=== PATIENT | female | born 1980 | race African-American/Black ===

== ENCOUNTER 2022-05-05 13:45 | Inpatient (IN) | payer MEDICAID, OTHER ==
[~2022-05-05] VITALS: Ht 162.6 cm; Wt 57.6 kg
[2022-05-05 15:45] LABS: EOSINOPHILS % (AUTO) 1.5 % (1.0-6.0); HEMATOCRIT 42.7 % (36-46); HEMOGLOBIN 14.2 g/dL (12.0-16.0); LYMPHOCYTES # (AUTO) 1.4 K/uL (1.0-4.8); LYMPHOCYTES % (AUTO) 19.9 % (22.0-44.0); MEAN CORPUSCULAR HEMOGLOBIN 31.3 pg (26.0-34.0); MEAN CORPUSCULAR HGB CONC 33.3 G/dL (31.0-37.0); MEAN CORPUSCULAR VOLUME 94 fL (80-100); MONOCYTES # (AUTO) 0.5 K/uL (0.1-1.0); MONOCYTES % (AUTO) 6.4 % (2.0-9.0); NEUTROPHILS # (AUTO) 5.2 K/uL (1.8-7.7); NEUTROPHILS % (AUTO) 71.2 % (40.0-70.0); PLATELET COUNT (AUTO) 268 K/uL (150-450); RED BLOOD CELL COUNT(AUTO) 4.54 MIL/uL (4.00-5.20); RED CELL DISTRIBUTION WIDTH 13.5 % (11.5-14.5)
[2022-05-05 15:56] LABS: ANION GAP 9 mmol/L (8-16); CALCIUM, TOTAL 9.7 mg/dL (8.8-10.5); CARBON DIOXIDE 30 mmol/L (22-29); CHLORIDE 105 mmol/L (98-107); CREATININE 0.92 mg/dL (0.60-1.30); GLOMERULAR FILTR. RATE CALC > 60 mL/min (>60); GLUCOSE,RANDOM 88 mg/dL (70-110); POTASSIUM 3.4 mmol/L (3.5-5.1); SODIUM SERUM 144 mmol/L (136-145); UREA NITROGEN, BLOOD 24 mg/dL (7-18)
[2022-05-05 16:08] LABS: ALANINE AMINOTRANSFERASE 18 U/L (12-78); ALKALINE PHOSPHATASE 55 U/L (46-116); ASPARTATE AMINOTRANSFERASE 19 U/L (15-37); BILIRUBIN,TOTAL 2.5 mg/dL (0.1-1.0); HCG,QUANTITATIVE < 1 mIU/mL (0-6); THYROID STIMULATING HORMONE 0.88 uIU/mL (0.36-3.74); TOTAL PROTEIN, SERUM 8.5 g/dL (6.4-8.2)
[2022-05-05] MEDS ORDERED: HALOPERIDOL LACTATE 5 MG/ML VIAL IM ONE (16:15)
[2022-05-05] MEDS ORDERED: OLANZapine 5 MG RAPDIS TABLET PO PRN (16:45)
[2022-05-05] MEDS ORDERED: LORazepam 1 MG TABLET PO PRN (16:45)
[2022-05-05] MEDS ORDERED: ZOLPIDEM TARTRATE 10 MG TABLET PO PRN (16:45)
[2022-05-05 20:18] LABS: COVID AG,FIA SOURCE NASAL SWAB
[2022-05-06 04:29] VITALS: BP 118/70
[2022-05-06] MEDS ORDERED: INFLUENZA VIRUS VACCINE QVS 2022-23 (6MO+)/PF 60 MCG/0.5 ML SYRINGE IM. ONE (06:00)
[2022-05-06] MEDS ORDERED: ACETAMINOPHEN 325 MG TABLET PO PRN (06:45)
[2022-05-06] MEDS ORDERED: ALBUTEROL SULFATE HFA 90 MCG/PUFF 8 GM INHALER IH PRN (06:45)
[2022-05-06] MEDS ORDERED: MAG HYDROX/AL HYDROX/SIMETH ES 30 ML SUSPENSION UDCUP PO PRN (06:45)
[2022-05-06] MEDS ORDERED: POTASSIUM CHLORIDE 20 MEQ ER TABLET PO ONE (06:45)
[2022-05-06] MEDS ORDERED: IBUPROFEN 600 MG TABLET PO PRN (06:45)
[2022-05-06] MEDS ORDERED: MAGNESIUM HYDROXIDE SUSPENSION 30 ML UDCUP PO PRN (06:45)
[2022-05-06] MEDS ORDERED: LOPERAMIDE HCL 2 MG CAPSULE PO PRN (06:45)
[2022-05-06] MEDS ORDERED: PETROLATUM,WHITE 28 GM JELLY TP PRN (06:45)
[2022-05-06] MEDS ORDERED: BENZOCAINE/MENTHOL LOZENGE PO PRN (06:45)
[2022-05-06] MEDS ORDERED: DOCUSATE SODIUM 100 MG CAPSULE PO PRN (06:45)
[2022-05-06] MEDS ORDERED: ONDANSETRON HCL 4 MG TABLET PO PRN (06:45)
[2022-05-06] MEDS ORDERED: OMEPRAZOLE 20 MG CAPSULE PO PRN (06:45)
[2022-05-06] MEDS ORDERED: CloNIDine HCL 0.1 MG TABLET PO PRN (06:45)
[2022-05-06] MEDS ORDERED: BACITRACIN 28 GM OINTMENT TP PRN (06:45)
[2022-05-06 07:23] LABS: HEMOGLOBIN A1C 4.8 % (3.8-5.6)
[2022-05-06 07:27] LABS: CHOL/HDL RATIO 6.8 (3.9-5.7)
[2022-05-06 09:02] VITALS: BP 107/61
[2022-05-06 20:36] VITALS: BP 104/61
[2022-05-07 08:06] VITALS: BP 134/85
[2022-05-07] MEDS ORDERED: POTASSIUM CHLORIDE 20 MEQ ER TABLET PO ONE (17:45)
[2022-05-07] MEDS: SIMVASTATIN 10 MG TABLET PO SCH (20:36)
[2022-05-07 20:45] VITALS: BP 120/72
[2022-05-08] MEDS: POTASSIUM CHLORIDE 20 MEQ ER TABLET PO SCH ×2 (08:21→17:35)
[2022-05-08 09:01] VITALS: BP 111/74
[2022-05-08] MEDS: SIMVASTATIN 10 MG TABLET PO SCH (20:14)
[2022-05-08 20:42] VITALS: BP 106/67
[2022-05-09 07:21] LABS: ANION GAP 4 mmol/L (8-16); CALCIUM, TOTAL 8.8 mg/dL (8.8-10.5); CARBON DIOXIDE 30 mmol/L (22-29); CHLORIDE 104 mmol/L (98-107); CREATININE 0.77 mg/dL (0.60-1.30); GLUCOSE,RANDOM 93 mg/dL (70-110); POTASSIUM 3.9 mmol/L (3.5-5.1); SODIUM SERUM 138 mmol/L (136-145); UREA NITROGEN, BLOOD 7 mg/dL (7-18)
[2022-05-09 07:22] LABS: GLOMERULAR FILTR. RATE CALC > 60 mL/min (>60)
[2022-05-09 08:29] VITALS: BP 106/66
[2022-05-09] MEDS: POTASSIUM CHLORIDE 20 MEQ ER TABLET PO SCH ×2 (08:41→17:09)
[2022-05-09 20:18] VITALS: BP 102/64
[2022-05-09] MEDS: SIMVASTATIN 10 MG TABLET PO SCH (20:27)
[2022-05-10] MEDS ORDERED: CITALOPRAM HYDROBROMIDE 20 MG TABLET PO SCH (09:00)
[2022-05-10] MEDS: POTASSIUM CHLORIDE 20 MEQ ER TABLET PO SCH ×2 (09:19→17:09)
[2022-05-10 09:27] VITALS: BP 113/76
[2022-05-10 20:40] VITALS: BP 103/65
[2022-05-10] MEDS: SIMVASTATIN 10 MG TABLET PO SCH (20:40)
[2022-05-10] MEDS ORDERED: CITA-144 PO (21:29)
[2022-05-10] MEDS ORDERED: SIMV-259 PO (23:22)
[2022-05-11 07:20] LABS: GLUCOMETER DEV NAME(LOC) POC.BV
[2022-05-11] MEDS ORDERED: SIMV-259 PO (19:15)
== END 2022-05-11 07:20 | disposition home or self-care (01) | DRG 750 ==
LOC: EMS 13:50 → B2S 05-06 00:27
PROVIDERS: ADMIT Psychiatry & Neurology Psychiatry; ATTEND Psychiatry & Neurology Psychiatry
DX: F25.9 Schizoaffective disorder, unspecified (principal); E78.5 Hyperlipidemia, unspecified; E87.6 Hypokalemia; F32.A Depression, unspecified; F41.9 Anxiety disorder, unspecified; K59.00 Constipation, unspecified; T73.0XXA Starvation, initial encounter; Z20.822 Contact with and (suspected) exposure to COVID-19; G47.00 Insomnia, unspecified; Z72.0 Tobacco use; Z71.6 Tobacco abuse counseling
CPT/HCPCS: 80048; 80053; 80061; 83036; 84132; 84443; 84702; 85025; 99285; G0480; J1630

== ENCOUNTER 2022-09-11 10:12 | Inpatient (IN) | payer MEDICAID, OTHER ==
[~2022-09-11] VITALS: Ht 162.6 cm; Wt 62.4 kg
[~2022-09-11 10:12] MED LIST: CITA-144 PO; SIMV-259 PO
[2022-09-11 11:03] LABS: BASOPHILS % (AUTO) 0.5 % (0.0-2.0); EOSINOPHILS % (AUTO) 0.5 % (1.0-6.0); HEMATOCRIT 38.5 % (36-46); HEMOGLOBIN 12.3 g/dL (12.0-16.0); LYMPHOCYTES # (AUTO) 1.5 K/uL (1.0-4.8); LYMPHOCYTES % (AUTO) 25.6 % (22.0-44.0); MEAN CORPUSCULAR HEMOGLOBIN 29.5 pg (26.0-34.0); MEAN CORPUSCULAR VOLUME 92 fL (80-100); MONOCYTES # (AUTO) 0.5 K/uL (0.1-1.0); MONOCYTES % (AUTO) 8.2 % (2.0-9.0); NEUTROPHILS # (AUTO) 3.9 K/uL (1.8-7.7); NEUTROPHILS % (AUTO) 65.2 % (40.0-70.0); PLATELET COUNT (AUTO) 250 K/uL (150-450); RED BLOOD CELL COUNT(AUTO) 4.17 MIL/uL (4.00-5.20); RED CELL DISTRIBUTION WIDTH 14.1 % (11.5-14.5)
[2022-09-11 11:05] LABS: COVID AG,FIA SOURCE NASOPHARYNGEAL
[2022-09-11 11:12] LABS: ANION GAP 17 mmol/L (8-16); CALCIUM, TOTAL 8.6 mg/dL (8.8-10.5); CARBON DIOXIDE 17 mmol/L (22-29); CHLORIDE 108 mmol/L (98-107); CREATININE 0.76 mg/dL (0.60-1.30); GLOMERULAR FILTR. RATE CALC > 60 mL/min (>60); GLUCOSE,RANDOM 60 mg/dL (70-110); POTASSIUM 3.5 mmol/L (3.5-5.1); SODIUM SERUM 142 mmol/L (136-145); UREA NITROGEN, BLOOD 9 mg/dL (7-18)
[2022-09-11 11:20] LABS: APPEARANCE,URINE CLEAR (CLEAR); BILIRUBIN,URINE NEGATIVE (NEGATIVE); GLUCOSE, URINE (UA) NEGATIVE (NEGATIVE); KETONES,URINE =>150 mg/dL (NEGATIVE); LEUKOCYTE ESTERASE ,URINE NEGATIVE (NEGATIVE); NITRATE,URINE NEGATIVE (NEGATIVE); OCCULT BLOOD,URINE NEGATIVE (NEGATIVE); PH,URINE 5.5 (5.0-8.0); PROTEIN,URINE 30-70 mg/dL (NEGATIVE); SPECIFIC GRAVITIY, URINE 1.031 (1.003-1.030); UROBILINOGEN,URINE <=1.0 mg/dL (<=1.0)
[2022-09-11 11:26] LABS: ALANINE AMINOTRANSFERASE 12 U/L (12-78); ALBUMIN 3.8 g/dL (3.4-5.0); ALKALINE PHOSPHATASE 53 U/L (46-116); ASPARTATE AMINOTRANSFERASE 18 U/L (15-37); HCG,QUANTITATIVE < 1 mIU/mL (0-6); THYROID STIMULATING HORMONE 0.54 uIU/mL (0.36-3.74); TOTAL PROTEIN, SERUM 7.7 g/dL (6.4-8.2)
[2022-09-11 11:53] LABS: AMPHET/METH SCREEN,URINE NEGATIVE (NEGATIVE); BARBITURATE SCREEN, URINE NEGATIVE (NEGATIVE); BENZODIAZEPINES SCREEN,URINE NEGATIVE (NEGATIVE); CANNABINOID SCREEN,URINE NEGATIVE (NEGATIVE); COCAINE SCREEN,URINE NEGATIVE (NEGATIVE); METHADONE SCREEN, URINE NEGATIVE (NEGATIVE); OPIATE SCREEN,URINE NEGATIVE (NEGATIVE); PHENCYCLIDINE SCREEN,URINE NEGATIVE (NEGATIVE)
[2022-09-11] MEDS ORDERED: HALOPERIDOL 5 MG TABLET PO PRN (13:00)
[2022-09-11] MEDS ORDERED: LORazepam 2 MG TABLET PO PRN (13:00)
[2022-09-11] MEDS ORDERED: ZOLPIDEM TARTRATE 10 MG TABLET PO PRN (13:00)
[2022-09-11 13:31] LABS: GLUCOSE,POINT OF CARE 83 MG/DL (70-110)
[2022-09-11 20:25] VITALS: BP 117/82
[2022-09-11] MEDS: SIMVASTATIN 10 MG TABLET PO SCH (20:33)
[2022-09-12 09:06] VITALS: BP 109/66
[2022-09-12] MEDS: RisperiDONE 1 MG TABLET PO SCH ×2 (11:05→16:25)
[2022-09-12] MEDS: ESCITALOPRAM OXALATE 10 MG TABLET PO SCH (11:05)
[2022-09-12] MEDS ORDERED: ALBUTEROL SULFATE HFA 90 MCG/PUFF 8 GM INHALER IH PRN (16:00)
[2022-09-12] MEDS ORDERED: IBUPROFEN 400 MG TABLET PO PRN (16:00)
[2022-09-12] MEDS ORDERED: LOPERAMIDE HCL 2 MG CAPSULE PO PRN (16:00)
[2022-09-12] MEDS ORDERED: ACETAMINOPHEN 325 MG TABLET PO PRN (16:00)
[2022-09-12] MEDS ORDERED: CloNIDine HCL 0.1 MG TABLET PO PRN (16:00)
[2022-09-12] MEDS ORDERED: MAG HYDROX/AL HYDROX/SIMETH ES 30 ML SUSPENSION UDCUP PO PRN (16:00)
[2022-09-12] MEDS ORDERED: PETROLATUM,WHITE 28 GM JELLY TP PRN (16:00)
[2022-09-12] MEDS ORDERED: GuaiFENesin/D-METHORPHAN [SUGAR-FREE] 200-20MG/10 ML SYRUP UDCUP PO PRN (16:00)
[2022-09-12] MEDS ORDERED: ONDANSETRON HCL 4 MG TABLET PO PRN (16:00)
[2022-09-12] MEDS ORDERED: NICOTINE 14 MG/24 HOUR PATCH TD PRN (16:00)
[2022-09-12] MEDS ORDERED: MAGNESIUM HYDROXIDE SUSPENSION 30 ML UDCUP PO PRN (16:00)
[2022-09-12] MEDS ORDERED: DOCUSATE SODIUM 100 MG CAPSULE PO PRN (16:00)
[2022-09-12 20:26] VITALS: BP 104/69
[2022-09-12] MEDS: SIMVASTATIN 10 MG TABLET PO SCH (20:37)
[2022-09-13 08:25] VITALS: BP 103/61
[2022-09-13] MEDS: ESCITALOPRAM OXALATE 10 MG TABLET PO SCH (08:45)
[2022-09-13] MEDS: RisperiDONE 1 MG TABLET PO SCH ×2 (08:45→16:36)
[2022-09-13 20:00] VITALS: BP 109/69
[2022-09-13] MEDS: SIMVASTATIN 10 MG TABLET PO SCH (20:08)
[2022-09-14 08:33] VITALS: BP 115/77
[2022-09-14] MEDS: ESCITALOPRAM OXALATE 10 MG TABLET PO SCH (08:46)
[2022-09-14] MEDS: RisperiDONE 1 MG TABLET PO SCH ×2 (08:46→16:21)
[2022-09-14 20:02] VITALS: BP 106/72
[2022-09-14] MEDS: SIMVASTATIN 10 MG TABLET PO SCH (20:04)
[2022-09-15 08:07] VITALS: BP 120/74
[2022-09-15] MEDS: MULTIVITAMINS WITH MINERALS, THERAPEUTIC TABLET PO SCH (08:31)
[2022-09-15] MEDS: RisperiDONE 1 MG TABLET PO SCH ×2 (08:31→16:39)
[2022-09-15] MEDS: ESCITALOPRAM OXALATE 10 MG TABLET PO SCH (08:31)
[2022-09-15 20:31] VITALS: BP 106/78
[2022-09-15] MEDS: SIMVASTATIN 10 MG TABLET PO SCH (20:31)
[2022-09-16] MEDS: ESCITALOPRAM OXALATE 10 MG TABLET PO SCH (09:10)
[2022-09-16] MEDS: MULTIVITAMINS WITH MINERALS, THERAPEUTIC TABLET PO SCH (09:10)
[2022-09-16] MEDS: RisperiDONE 1 MG TABLET PO SCH ×2 (09:10→16:44)
[2022-09-16 09:49] VITALS: BP 120/80
[2022-09-16] MEDS: SIMVASTATIN 10 MG TABLET PO SCH (20:38)
[2022-09-16 22:42] VITALS: BP 111/62
[2022-09-17] MEDS: MULTIVITAMINS WITH MINERALS, THERAPEUTIC TABLET PO SCH (08:15)
[2022-09-17] MEDS: RisperiDONE 1 MG TABLET PO SCH ×2 (08:15→16:12)
[2022-09-17] MEDS: ESCITALOPRAM OXALATE 10 MG TABLET PO SCH (08:15)
[2022-09-17 08:19] VITALS: BP 110/68
[2022-09-17 20:34] VITALS: BP 115/70
[2022-09-17] MEDS: SIMVASTATIN 10 MG TABLET PO SCH (20:34)
[2022-09-18 00:01] LABS: GLUCOMETER DEV NAME(LOC) POC.BV
[2022-09-18] MEDS: MULTIVITAMINS WITH MINERALS, THERAPEUTIC TABLET PO SCH (08:55)
[2022-09-18] MEDS: ESCITALOPRAM OXALATE 10 MG TABLET PO SCH (08:55)
[2022-09-18] MEDS: RisperiDONE 1 MG TABLET PO SCH ×2 (08:55→16:43)
[2022-09-18 08:58] VITALS: BP 112/74
[2022-09-18 20:24] VITALS: BP 117/75
[2022-09-18] MEDS: SIMVASTATIN 10 MG TABLET PO SCH (20:31)
[2022-09-19 09:12] VITALS: BP 112/70
[2022-09-19] MEDS: RisperiDONE 1 MG TABLET PO SCH ×2 (09:35→16:54)
[2022-09-19] MEDS: MULTIVITAMINS WITH MINERALS, THERAPEUTIC TABLET PO SCH (09:36)
[2022-09-19] MEDS: ESCITALOPRAM OXALATE 10 MG TABLET PO SCH (09:36)
[2022-09-19] MEDS: SIMVASTATIN 10 MG TABLET PO SCH (20:10)
[2022-09-19 20:16] VITALS: BP 105/70
[2022-09-20 07:33] LABS: CHOL/HDL RATIO 2.5 (3.9-5.7)
[2022-09-20] MEDS: RisperiDONE 1 MG TABLET PO SCH ×2 (08:15→17:22)
[2022-09-20] MEDS: ESCITALOPRAM OXALATE 10 MG TABLET PO SCH (08:15)
[2022-09-20] MEDS: MULTIVITAMINS WITH MINERALS, THERAPEUTIC TABLET PO SCH (08:15)
[2022-09-20 08:24] VITALS: BP 117/74
[2022-09-20 20:31] VITALS: BP 107/73
[2022-09-20] MEDS: SIMVASTATIN 10 MG TABLET PO SCH (20:35)
[2022-09-21 08:19] VITALS: BP 130/75
[2022-09-21] MEDS: MULTIVITAMINS WITH MINERALS, THERAPEUTIC TABLET PO SCH (08:40)
[2022-09-21] MEDS: ESCITALOPRAM OXALATE 10 MG TABLET PO SCH (08:40)
[2022-09-21] MEDS: RisperiDONE 1 MG TABLET PO SCH ×2 (08:40→16:10)
[2022-09-21] MEDS ORDERED: SIMV10TA97 PO (09:51)
[2022-09-21] MEDS ORDERED: ESCI10 PO (09:51)
[2022-09-21] MEDS ORDERED: RISP1TAB98 PO (09:51)
== END 2022-09-21 17:37 | disposition home or self-care (01) | DRG 750 ==
LOC: EMS 10:26 → B2S 13:58
PROVIDERS: ADMIT Psychiatry & Neurology Child & Adolescent Psychiatry; ATTEND Psychiatry & Neurology Child & Adolescent Psychiatry
DX: F25.1 Schizoaffective disorder, depressive type (principal); E87.20 Acidosis, unspecified; Z20.822 Contact with and (suspected) exposure to COVID-19; F41.9 Anxiety disorder, unspecified; E78.5 Hyperlipidemia, unspecified; E16.2 Hypoglycemia, unspecified; Z91.14 Patient's other noncompliance with medication regimen; Z79.899 Other long term (current) drug therapy; Z81.8 Family history of other mental and behavioral disorders; Z86.718 Personal history of other venous thrombosis and embolism
CPT/HCPCS: 80053; 80061; 80307; 81003; 82962; 84443; 84702; 85025; 99285; G0480

== ENCOUNTER 2023-01-31 09:31 | Inpatient (IN) | payer MEDICAID, OTHER ==
[~2023-01-31] VITALS: Ht 162.6 cm; Wt 64.9 kg
[~2023-01-31 09:31] MED LIST changes: -CITA-144 PO; +ESCI10 PO; +RISP1TAB98 PO; -SIMV-259 PO; +SIMV10TA97 PO
[2023-01-31 10:05] LABS: BASOPHILS % (AUTO) 0.5 % (0.0-2.0); EOSINOPHILS % (AUTO) 0.1 % (1.0-6.0); HEMATOCRIT 40.6 % (36-46); LYMPHOCYTES # (AUTO) 1.1 K/uL (1.0-4.8); LYMPHOCYTES % (AUTO) 9.4 % (22.0-44.0); MEAN CORPUSCULAR HGB CONC 32.1 G/dL (31.0-37.0); MEAN CORPUSCULAR VOLUME 90 fL (80-100); MONOCYTES % (AUTO) 8.4 % (2.0-9.0); NEUTROPHILS # (AUTO) 9.6 K/uL (1.8-7.7); NEUTROPHILS % (AUTO) 81.6 % (40.0-70.0); PLATELET COUNT (AUTO) 299 K/uL (150-450); RED BLOOD CELL COUNT(AUTO) 4.49 MIL/uL (4.00-5.20); RED CELL DISTRIBUTION WIDTH 14.8 % (11.5-14.5)
[2023-01-31 10:13] LABS: ANION GAP 17 mmol/L (8-16); CALCIUM, TOTAL 9.5 mg/dL (8.8-10.5); CARBON DIOXIDE 22 mmol/L (22-29); CHLORIDE 110 mmol/L (98-107); CREATININE 0.93 mg/dL (0.60-1.30); GLOMERULAR FILTR. RATE CALC > 60 mL/min (>60); GLUCOSE,RANDOM 99 mg/dL (70-110); POTASSIUM 3.1 mmol/L (3.5-5.1); SODIUM SERUM 149 mmol/L (136-145)
[2023-01-31 10:19] LABS: ALANINE AMINOTRANSFERASE 45 U/L (12-78); ALBUMIN 4.4 g/dL (3.4-5.0); ALKALINE PHOSPHATASE 65 U/L (46-116); ASPARTATE AMINOTRANSFERASE 98 U/L (15-37); BILIRUBIN,TOTAL 2.3 mg/dL (0.1-1.0); TOTAL PROTEIN, SERUM 8.8 g/dL (6.4-8.2)
[2023-01-31] MEDS ORDERED: POTASSIUM CHLORIDE 20 MEQ ER TABLET PO ONE (10:45)
[2023-01-31 11:01] LABS: AMPHET/METH SCREEN,URINE NEGATIVE (NEGATIVE); BARBITURATE SCREEN, URINE NEGATIVE (NEGATIVE); BENZODIAZEPINES SCREEN,URINE NEGATIVE (NEGATIVE); CANNABINOID SCREEN,URINE NEGATIVE (NEGATIVE); COCAINE SCREEN,URINE NEGATIVE (NEGATIVE); METHADONE SCREEN, URINE NEGATIVE (NEGATIVE); OPIATE SCREEN,URINE NEGATIVE (NEGATIVE); PHENCYCLIDINE SCREEN,URINE NEGATIVE (NEGATIVE)
[2023-01-31] MEDS ORDERED: HydrALAZINE HCL 25 MG TABLET PO SCH (11:15)
[2023-01-31] MEDS ORDERED: PRAVASTATIN SODIUM 20 MG TABLET PO SCH (11:15)
[2023-01-31] MEDS ORDERED: GABAPENTIN 300 MG CAPSULE PO SCH (11:15)
[2023-01-31] MEDS ORDERED: MEMANTINE HCL 10 MG TABLET PO SCH (11:15)
[2023-01-31] MEDS ORDERED: METOPROLOL SUCCINATE 25 MG ER TABLET PO SCH (11:15)
[2023-01-31 13:25] LABS: COVID AG,FIA SOURCE NASAL SWAB
[2023-01-31] MEDS ORDERED: OLANZapine 5 MG RAPDIS TABLET PO PRN (13:30)
[2023-01-31] MEDS ORDERED: LORazepam 1 MG TABLET PO PRN (13:30)
[2023-01-31] MEDS ORDERED: ZOLPIDEM TARTRATE 10 MG TABLET PO PRN (13:30)
[2023-01-31 17:47] VITALS: BP 122/80; PULSE 75; RESP 18; TEMP 98.4; O2SAT 99
[2023-01-31] MEDS ORDERED: BUMETANIDE 1 MG TABLET PO SCH (21:00)
[2023-01-31 21:59] VITALS: BP 122/80; PULSE 80; RESP 18; TEMP 98.2; O2SAT 99
[2023-02-01 08:18] VITALS: BP 105/66; PULSE 59; RESP 18; TEMP 98.3; O2SAT 100
[2023-02-01] MEDS ORDERED: LORATADINE 10 MG TABLET PO SCH (09:00)
[2023-02-01] MEDS: ESCITALOPRAM OXALATE 10 MG TABLET PO SCH (15:00)
[2023-02-01] MEDS: RisperiDONE 1 MG TABLET PO SCH (16:18)
[2023-02-01 20:20] VITALS: BP 124/83; PULSE 64; RESP 18; TEMP 98.1; O2SAT 97
[2023-02-02] MEDS: RisperiDONE 1 MG TABLET PO SCH ×2 (09:00→16:12)
[2023-02-02] MEDS: ESCITALOPRAM OXALATE 10 MG TABLET PO SCH (09:00)
[2023-02-02 10:08] VITALS: BP 121/77; PULSE 68; RESP 18; TEMP 97.6; O2SAT 98
[2023-02-02 21:27] VITALS: BP 130/83; PULSE 80; RESP 18; TEMP 98.1; O2SAT 99
[2023-02-03 09:05] VITALS: BP 121/77; PULSE 78; RESP 18; TEMP 97.5; O2SAT 99
[2023-02-03] MEDS: ESCITALOPRAM OXALATE 10 MG TABLET PO SCH (09:16)
[2023-02-03] MEDS: RisperiDONE 1 MG TABLET PO SCH ×2 (09:20→17:05)
[2023-02-03 22:32] VITALS: BP 124/76; PULSE 85; RESP 18; TEMP 98.1; O2SAT 98
[2023-02-04 09:37] VITALS: BP 110/67; PULSE 81; RESP 18; TEMP 98.4; O2SAT 97
[2023-02-04] MEDS: ESCITALOPRAM OXALATE 10 MG TABLET PO SCH (09:39)
[2023-02-04] MEDS: RisperiDONE 1 MG TABLET PO SCH ×2 (09:39→16:19)
[2023-02-04 20:19] VITALS: BP 119/68; PULSE 52; RESP 18; TEMP 98.2; O2SAT 100
[2023-02-05 08:14] LABS: BASOPHILS % (AUTO) 0.6 % (0.0-2.0); EOSINOPHILS % (AUTO) 4.5 % (1.0-6.0); HEMATOCRIT 34.5 % (36-46); HEMOGLOBIN 11.5 g/dL (12.0-16.0); LYMPHOCYTES # (AUTO) 1.8 K/uL (1.0-4.8); LYMPHOCYTES % (AUTO) 37.7 % (22.0-44.0); MEAN CORPUSCULAR HEMOGLOBIN 30.2 pg (26.0-34.0); MEAN CORPUSCULAR HGB CONC 33.3 G/dL (31.0-37.0); MEAN CORPUSCULAR VOLUME 91 fL (80-100); MONOCYTES # (AUTO) 0.4 K/uL (0.1-1.0); MONOCYTES % (AUTO) 7.7 % (2.0-9.0); NEUTROPHILS # (AUTO) 2.4 K/uL (1.8-7.7); NEUTROPHILS % (AUTO) 49.5 % (40.0-70.0); PLATELET COUNT (AUTO) 229 K/uL (150-450); RED CELL DISTRIBUTION WIDTH 14.7 % (11.5-14.5)
[2023-02-05 08:34] VITALS: BP 105/64; PULSE 69; RESP 19; TEMP 97.4; O2SAT 99
[2023-02-05] MEDS: RisperiDONE 1 MG TABLET PO SCH ×2 (08:35→16:30)
[2023-02-05] MEDS: ESCITALOPRAM OXALATE 10 MG TABLET PO SCH (08:35)
[2023-02-05 20:29] VITALS: BP 103/72; PULSE 65; RESP 18; TEMP 97.9; O2SAT 97
[2023-02-06 08:13] VITALS: BP 107/64; PULSE 68; RESP 19; TEMP 97.5; O2SAT 98
[2023-02-06] MEDS: ESCITALOPRAM OXALATE 10 MG TABLET PO SCH (08:31)
[2023-02-06] MEDS: RisperiDONE 1 MG TABLET PO SCH ×2 (08:31→16:53)
[2023-02-06 20:18] VITALS: BP 104/66; PULSE 72; RESP 20; TEMP 98.3; O2SAT 100
[2023-02-07 08:27] VITALS: BP 117/64; PULSE 76; RESP 16; TEMP 97.5; O2SAT 98
[2023-02-07] MEDS: RisperiDONE 1 MG TABLET PO SCH ×2 (09:31→16:26)
[2023-02-07] MEDS: ESCITALOPRAM OXALATE 10 MG TABLET PO SCH (09:31)
[2023-02-07] MEDS ORDERED: ESCI-8 PO (14:22)
[2023-02-07] MEDS ORDERED: RISP1TAB98 PO (14:22)
== END 2023-02-07 18:30 | disposition home or self-care (01) | DRG 750 ==
LOC: EMS 09:35 → B2S 13:47
PROVIDERS: ADMIT Psychiatry & Neurology Child & Adolescent Psychiatry; ATTEND Psychiatry & Neurology Child & Adolescent Psychiatry
DX: F25.1 Schizoaffective disorder, depressive type (principal); E87.0 Hyperosmolality and hypernatremia; D72.829 Elevated white blood cell count, unspecified; Z20.822 Contact with and (suspected) exposure to COVID-19; E78.5 Hyperlipidemia, unspecified; E87.6 Hypokalemia; I10 Essential (primary) hypertension; Z86.711 Personal history of pulmonary embolism; Z91.148 Patient's other noncompliance with medication regimen for other reason
CPT/HCPCS: 80053; 80307; 84132; 84703; 85025; 99285; G0480

== ENCOUNTER 2023-02-20 09:32 | Emergency (ER) | payer MEDICAID, OTHER ==
[~2023-02-20] VITALS: Ht 162.6 cm; Wt 72.7 kg
[~2023-02-20 09:32] MED LIST changes: +ESCI-8 PO; -ESCI10 PO; -SIMV10TA97 PO
[2023-02-20 10:17] LABS: BASOPHILS % (AUTO) 0.5 % (0.0-2.0); HEMATOCRIT 33.5 % (36-46); HEMOGLOBIN 10.8 g/dL (12.0-16.0); LYMPHOCYTES # (AUTO) 1.3 K/uL (1.0-4.8); LYMPHOCYTES % (AUTO) 30.3 % (22.0-44.0); MEAN CORPUSCULAR HGB CONC 32.2 G/dL (31.0-37.0); MEAN CORPUSCULAR VOLUME 90 fL (80-100); MONOCYTES # (AUTO) 0.3 K/uL (0.1-1.0); MONOCYTES % (AUTO) 5.9 % (2.0-9.0); NEUTROPHILS # (AUTO) 2.7 K/uL (1.8-7.7); NEUTROPHILS % (AUTO) 62.3 % (40.0-70.0); PLATELET COUNT (AUTO) 302 K/uL (150-450); RED BLOOD CELL COUNT(AUTO) 3.72 MIL/uL (4.00-5.20); RED CELL DISTRIBUTION WIDTH 14.6 % (11.5-14.5)
[2023-02-20 10:18] LABS: ANION GAP 8 mmol/L (8-16); CALCIUM, TOTAL 8.6 mg/dL (8.8-10.5); CARBON DIOXIDE 29 mmol/L (22-29); CHLORIDE 105 mmol/L (98-107); CREATININE 0.82 mg/dL (0.60-1.30); GLOMERULAR FILTR. RATE CALC > 60 mL/min (>60); GLUCOSE,RANDOM 102 mg/dL (70-110); POTASSIUM 3.8 mmol/L (3.5-5.1); SODIUM SERUM 142 mmol/L (136-145)
[2023-02-20 10:29] LABS: ALANINE AMINOTRANSFERASE 45 U/L (12-78); ALBUMIN 3.3 g/dL (3.4-5.0); ALKALINE PHOSPHATASE 58 U/L (46-116); ASPARTATE AMINOTRANSFERASE 34 U/L (15-37); HCG,QUANTITATIVE 2 mIU/mL (0-6); TOTAL PROTEIN, SERUM 7.1 g/dL (6.4-8.2)
[2023-02-20] MEDS ORDERED: RisperiDONE 1 MG TABLET PO ONE (10:45)
[2023-02-20 11:01] LABS: AMPHET/METH SCREEN,URINE NEGATIVE (NEGATIVE); BARBITURATE SCREEN, URINE NEGATIVE (NEGATIVE); BENZODIAZEPINES SCREEN,URINE NEGATIVE (NEGATIVE); CANNABINOID SCREEN,URINE NEGATIVE (NEGATIVE); COCAINE SCREEN,URINE NEGATIVE (NEGATIVE); METHADONE SCREEN, URINE NEGATIVE (NEGATIVE); OPIATE SCREEN,URINE NEGATIVE (NEGATIVE); PHENCYCLIDINE SCREEN,URINE NEGATIVE (NEGATIVE)
[2023-02-20 11:44] VITALS: TEMP 97.9
[2023-02-20 12:00] VITALS: BP 126/75; PULSE 65; RESP 16
== END 2023-02-20 12:36 | disposition home or self-care (01) ==
LOC: EMS 09:32
DX: F20.9 Schizophrenia, unspecified (principal); Z98.890 Other specified postprocedural states; Z91.148 Patient's other noncompliance with medication regimen for other reason
CPT/HCPCS: 99283; 80053; 84702; 85025; 36415; 80307; G0480

== ENCOUNTER 2023-03-05 22:01 | Emergency (ER) | payer OTHER ==
[~2023-03-05] VITALS: Ht 162.6 cm; Wt 68.2 kg
[2023-03-05 22:49] VITALS: BP 148/73; PULSE 60; RESP 17; TEMP 98.3
[2023-03-06 00:17] LABS: EOSINOPHILS % (AUTO) 0.8 % (1.0-6.0); HEMATOCRIT 39.1 % (36-46); HEMOGLOBIN 12.9 g/dL (12.0-16.0); LYMPHOCYTES # (AUTO) 1.4 K/uL (1.0-4.8); LYMPHOCYTES % (AUTO) 19.8 % (22.0-44.0); MEAN CORPUSCULAR HEMOGLOBIN 29.4 pg (26.0-34.0); MEAN CORPUSCULAR VOLUME 89 fL (80-100); MONOCYTES # (AUTO) 0.7 K/uL (0.1-1.0); MONOCYTES % (AUTO) 10.8 % (2.0-9.0); NEUTROPHILS # (AUTO) 4.7 K/uL (1.8-7.7); NEUTROPHILS % (AUTO) 67.6 % (40.0-70.0); PLATELET COUNT (AUTO) 277 K/uL (150-450); RED BLOOD CELL COUNT(AUTO) 4.38 MIL/uL (4.00-5.20); RED CELL DISTRIBUTION WIDTH 14.5 % (11.5-14.5)
[2023-03-06 00:18] LABS: ANION GAP 13 mmol/L (8-16); CALCIUM, TOTAL 9.5 mg/dL (8.8-10.5); CARBON DIOXIDE 25 mmol/L (22-29); CHLORIDE 106 mmol/L (98-107); GLOMERULAR FILTR. RATE CALC > 60 mL/min (>60); GLUCOSE,RANDOM 86 mg/dL (70-110); POTASSIUM 3.5 mmol/L (3.5-5.1); SODIUM SERUM 144 mmol/L (136-145)
[2023-03-06 00:22] LABS: ALANINE AMINOTRANSFERASE 32 U/L (12-78); ALBUMIN 4.1 g/dL (3.4-5.0); ALKALINE PHOSPHATASE 68 U/L (46-116); ASPARTATE AMINOTRANSFERASE 38 U/L (15-37); TOTAL PROTEIN, SERUM 8.4 g/dL (6.4-8.2)
== END 2023-03-06 02:00 | disposition left against medical advice (07) ==
LOC: EMS 22:02
DX: Z53.21 Procedure and treatment not carried out due to patient leaving prior to being seen by health care provider (principal)
CPT/HCPCS: 99281; 80053; 85025; G0480

== ENCOUNTER 2024-07-28 22:43 | Emergency (ER) | payer OTHER ==
[~2024-07-28] VITALS: Ht 162.6 cm; Wt 61.0 kg
[~2024-07-28 22:43] MED LIST changes: -ESCI-8 PO; +RISP-31 PO; -RISP1TAB98 PO
[2024-07-28 23:07] VITALS: TEMP 98.1
[2024-07-29] MEDS: RisperiDONE 1 MG TABLET PO ONE (02:44)
[2024-07-29 02:46] VITALS: BP 144/79; PULSE 64; RESP 16; O2SAT 99
[2024-07-29] MEDS ORDERED: RISP-31 PO (03:52)
== END 2024-07-29 03:52 | disposition home or self-care (01) ==
LOC: EMS 22:44
DX: F25.9 Schizoaffective disorder, unspecified (principal); Z98.890 Other specified postprocedural states; Z76.0 Encounter for issue of repeat prescription; Z79.899 Other long term (current) drug therapy; Z86.718 Personal history of other venous thrombosis and embolism
CPT/HCPCS: 99284; Z7502; Z7610

== ENCOUNTER 2024-08-27 18:01 | Emergency (ER) | payer OTHER ==
[~2024-08-27] VITALS: Ht 165.1 cm; Wt 63.6 kg
[2024-08-27 18:07] VITALS: TEMP 98.6
[2024-08-27 18:56] LABS: BASOPHILS % (AUTO) 0.7 % (0.0-2.0); EOSINOPHILS % (AUTO) 0.9 % (1.0-6.0); HEMATOCRIT 40.3 % (36-46); HEMOGLOBIN 12.9 g/dL (12.0-16.0); LYMPHOCYTES # (AUTO) 2.1 K/uL (1.0-4.8); LYMPHOCYTES % (AUTO) 30.8 % (22.0-44.0); MEAN CORPUSCULAR HEMOGLOBIN 26.1 pg (26.0-34.0); MEAN CORPUSCULAR VOLUME 82 fL (80-100); MONOCYTES # (AUTO) 0.4 K/uL (0.1-1.0); MONOCYTES % (AUTO) 5.7 % (2.0-9.0); NEUTROPHILS # (AUTO) 4.3 K/uL (1.8-7.7); NEUTROPHILS % (AUTO) 61.9 % (40.0-70.0); PLATELET COUNT (AUTO) 342 K/uL (150-450); RED BLOOD CELL COUNT(AUTO) 4.93 MIL/uL (4.00-5.20); RED CELL DISTRIBUTION WIDTH 20.7 % (11.5-14.5); WHITE BLOOD COUNT (AUTO) 6.9 K/uL (4.5-11.0)
[2024-08-27 19:02] LABS: ANION GAP 12 mmol/L (8-16); CALCIUM, TOTAL 9.7 mg/dL (8.8-10.5); CARBON DIOXIDE 31 mmol/L (22-29); CHLORIDE 101 mmol/L (98-107); CREATININE 0.83 mg/dL (0.60-1.30); GLOMERULAR FILTR. RATE CALC > 60 mL/min (>60); GLUCOSE,RANDOM 87 mg/dL (70-110); POTASSIUM 3.6 mmol/L (3.5-5.1); SODIUM SERUM 144 mmol/L (136-145); UREA NITROGEN, BLOOD 11 mg/dL (7-18)
[2024-08-27 19:16] LABS: ALCOHOL, BLOOD (SERUM) < 3 mg/dL (0-10)
[2024-08-27 21:07] VITALS: BP 118/76; PULSE 98; RESP 18; O2SAT 98
== END 2024-08-28 02:47 | disposition home or self-care (01) ==
LOC: EMS 18:01
DX: F20.9 Schizophrenia, unspecified (principal); R44.0 Auditory hallucinations; Z86.718 Personal history of other venous thrombosis and embolism; Z98.890 Other specified postprocedural states
CPT/HCPCS: 99283; 80048; 84703; 85025; 36415; G0480